=== PATIENT | female | born 1980 | race Caucasian/White ===

== ENCOUNTER 2017-01-09 20:13 | Emergency (ER) | payer OTHER ==
[~2017-01-09] VITALS: Ht 172.7 cm; Wt 81.8 kg
[~2017-01-09 20:13] MED LIST: ADDERALL XR20 MG PO; ADDERALL XR25 MG PO; NORCO 325 MG-7.1 TAB PO; PREDNISONE10 MG PO
[2017-01-09 20:21] VITALS: BP 146/83; PULSE 67; TEMP 98.5
[2017-01-09] MEDS ORDERED: WELLBUTRIN SR100 M1 PO (20:23)
[2017-01-09] MEDS ORDERED: KLONOPIN 0.5MG0.5 MG PO (20:23)
[2017-01-09] MEDS ORDERED: WELLBUTRIN XL150 MG PO (20:23)
== END 2017-01-09 21:51 | disposition home or self-care (01) ==
LOC: COL.ER 20:13
DX: S93.492A Sprain of other ligament of left ankle, initial encounter (principal); W18.42XA Slipping, tripping and stumbling without falling due to stepping into hole or opening, initial encounter; Y93.02 Activity, running; Y92.481 Parking lot as the place of occurrence of the external cause

== ENCOUNTER 2017-05-19 11:30 | Outpatient (RCR) | payer OTHER ==
[~2017-05-19 11:30] MED LIST changes: +KLONOPIN 0.5MG0.5 MG PO; +WELLBUTRIN SR100 M1 PO; +WELLBUTRIN XL150 MG PO
== END 2017-06-22 13:52 ==
LOC: WSC 11:30
DX: S76.011D Strain of muscle, fascia and tendon of right hip, subsequent encounter (principal)